=== PATIENT | female | born 1960 | race Caucasian/White ===

== ENCOUNTER 2021-01-25 10:37 | Outpatient (REF) | payer OTHER, SELFPAY ==
[2021-01-25 13:12] LABS: MANUAL DIFF FLAG NO
[2021-01-25 13:20] LABS: Basophils Absolute Auto 0.1 X10*3/uL (0.0-0.2); Basophils Percent Auto 0.9 % (0-2); Eosinophils Absolute Auto 0.2 X10*3/uL (0.0-0.4); Eosinophils Percent Auto 2.2 % (0-4); Hematocrit 42.1 % (37-47); Imm Gran Abs Auto 0.02 X10*3/uL (0.00-0.03); Imm Gran Pct Auto 0.3 % (0.0-0.4); Lymphocytes Absolute Auto 2.1 X10*3/uL (1.2-4.9); Lymphocytes Percent Auto 27.8 % (20-40); Mean Corpuscular HGB Conc 33.3 g/dl (31.0-35.0); Mean Corpuscular Hemoglobin 28.7 pg (27.0-33.0); Mean Corpuscular Volume 86.4 fL (80-98); Mean Platelet Volume 10.7 fL (9.4-12.3); Monocytes Absolute Auto 0.7 X10*3/uL (0.1-1.2); Monocytes Percent Auto 8.8 % (2-11); Neutrophils Absolute Auto 4.4 X10*3/uL (2.0-8.3); Platelet Count 304 X10*3/uL (160-400); Red Blood Count 4.87 X10*6/uL (4.20-5.50); Red Cell Distribution Width 12.9 % (11.0-16.0); White Blood Count 7.4 X10*3/uL (4.8-10.8)
[2021-01-25 13:40] LABS: Alanine Aminotransferase 24 U/L (0-31); Albumin Level 4.3 g/dL (3.5-5.0); Alkaline Phosphatase 92 U/L (39-117); Anion Gap 13 (12-20); Aspartate Amino Transferase 25 U/L (5-31); Bilirubin Total 0.4 mg/dL (0.0-1.0); Blood Urea Nitrogen 16 mg/dL (9-16); Calcium 10.1 mg/dL (8.4-10.2); Carbon Dioxide 26 mmol/L (22-29); Chloride 103 mmol/L (96-108); Cholesterol 270 mg/dL; Estimated Glomerular Filt Rate > 60; Glucose Fasting 97 mg/dL (60-99); HDL Cholesterol 60 mg/dL; LDL Cholesterol Calculated 190 mg/dl; Potassium 4.3 mmol/L (3.3-5.1); Sodium 138 mmol/L (135-145); Total Protein 7.8 g/dL (6.5-8.0); Triglycerides 102 mg/dL
[2021-01-25 14:03] LABS: Thyroid Stimulating Hormone 0.97 uIU/mL (0.32-4.0); Vitamin D 25-OH Total 71.8 ng/mL (>30)
== END 2021-01-25 10:38 | disposition home or self-care (01) ==
LOC: HO.MANLDS 10:37
PROVIDERS: PCP Internal Medicine; Visit Provider Physician Assistant
DX: Z00.00 Encounter for general adult medical examination without abnormal findings (principal)
CPT/HCPCS: 36415; 80053; 80061; 82306; 84439; 84443; 85025

== ENCOUNTER 2024-03-18 09:43 | Outpatient (REF) | payer OTHER, SELFPAY ==
[2024-03-18 13:22] LABS: MANUAL DIFF FLAG NO
[2024-03-18 13:31] LABS: Basophils Absolute Auto 0.1 X10*3/uL (0.0-0.2); Basophils Percent Auto 1.2 % (0-2); Eosinophils Absolute Auto 0.2 X10*3/uL (0.0-0.4); Hematocrit 42.8 % (37.0-47.0); Hemoglobin 14.2 g/dl (12.0-16.0); Imm Gran Abs Auto 0.02 X10*3/uL (0.00-0.03); Imm Gran Pct Auto 0.3 % (0.0-0.4); Lymphocytes Absolute Auto 2.3 X10*3/uL (1.2-4.9); Lymphocytes Percent Auto 30.7 % (20-40); Mean Corpuscular HGB Conc 33.2 g/dl (31.0-35.0); Mean Corpuscular Hemoglobin 29.6 pg (27.0-33.0); Mean Corpuscular Volume 89.2 fL (80.0-98.0); Monocytes Absolute Auto 0.5 X10*3/uL (0.1-1.2); Neutrophils Absolute Auto 4.4 x10*3/uL (2.0-8.3); Neutrophils Percent Auto 58.8 % (45-73); Platelet Count 352 X10*3/uL (160-400); White Blood Count 7.5 X10*3/uL (4.8-10.8)
[2024-03-18 13:42] LABS: Estimated Average Glucose 108 mg/dL; Hemoglobin A1c % 5.4 % (<6.0)
[2024-03-18 14:09] LABS: Alanine Aminotransferase 11 U/L (0-31); Albumin Level 4.3 g/dL (3.5-5.0); Alkaline Phosphatase 65 U/L (39-117); Anion Gap 13 (12-20); Aspartate Amino Transferase 16 U/L (5-31); Bilirubin Total 0.4 mg/dL (0.0-1.0); Blood Urea Nitrogen 19 mg/dL (9-16); Calcium 10.1 mg/dL (8.4-10.2); Carbon Dioxide 26 mmol/L (22-29); Chloride 107 mmol/L (96-108); Cholesterol 236 mg/dL (<200); Estimated Glomerular Filt Rate > 60; Glucose Random 86 mg/dL (60-115); HDL Cholesterol 61 mg/dL (>40); LDL Cholesterol Calculated 156 mg/dL (<100); Potassium 4.4 mmol/L (3.3-5.1); Sodium 142 mmol/L (135-145); Total Protein 7.9 g/dL (6.5-8.0); Triglycerides 97 mg/dL (<150)
[2024-03-18 14:26] LABS: Vitamin D 25-OH Total 58.8 ng/mL (>30)
== END 2024-03-18 09:44 | disposition home or self-care (01) ==
LOC: HO.MANLDS 09:43
PROVIDERS: Visit Provider Physician Assistant
DX: Z00.00 Encounter for general adult medical examination without abnormal findings (principal); Z20.2 Contact with and (suspected) exposure to infections with a predominantly sexual mode of transmission
CPT/HCPCS: 36415; 80053; 80061; 82306; 83036; 85025

== ENCOUNTER 2025-06-22 08:46 | Outpatient (REF) | payer OTHER, SELFPAY ==
--- OUTSIDE RECORDS SUMMARY | 2025-06-22 09:30 | XMS_ITS | Encounter Summary ---
Author Organization [facility] Address [address] [facility] [address] [place] [address] Phone Care Team Providers Care Wood Preserving Plant Laborer Name Role Phone Bony Davis DO Unavailable Bony Davis DO Primary Care Provider [phone] Encounter Details Date Type Department Care Team (Latest Contact Info) Description 06/09/2025 Transcribe Orders Virtual Department [address] [place] [address] Nettie Weber PA 6 [facility] [place] [address] [place] [address] Breast screening (Primary Dx) Social History Tobacco Use Types Packs/Day Years Used Date Smoking Tobacco: Never Smokeless Tobacco: Never Alcohol Use Standard Drinks/Week Comments Yes 0 (1 standard drink = 0.6 oz pur e alcohol) 1-2/week Education Answer Date Recorded Are you interested in more education? Not on eliseo e 01/11/2023 Are you concerned about learning? Not on file 01/11/2023 No 01/11/2023 No 01/11/2023 Digital Access Answer Date Recorded No 02/09/2023 No 02/09/2023 Reliable internet access at home? Not on file 02/09/2023 Device with a working camera? Not on file Comments No Sex and Gender Information Value Date Recorded Sex Assigned at Not on file Legal Sex Female 9:47 PM EDT Gender Identity Not on file Sexual Orientation Not on file documented as of this encounter Plan of Treatment Upcoming Encounters Date Type Department Care Team (Late st Contact Info) Description 06/09/2025 Procedure Pass [facility], Mammography- [address] [address] 02/14/2026 10:30 AM EDT Office Visit [facility] Plastic Surgery [address] [place] [address] Chad Varela MD [address] [place] [address] [place] [address] 02/15/2026 10:00 AM EDT Appointment [facility], [facility]- [address] [address] Nettie Weber PA 6 [facility] [place] [address] [place] [address] Scheduled Orders Name Type Priority Associated Diagnoses Orde r Schedule Mammogram Screening (Bilateral) Imaging Routine Breast screening Expected: 07/09/2025, Expires: 06/09/2026 documented as of this encounter Visit Diagnoses Diagnosis Breast screening- Primary Breast screening, unspecified documented in this encounter Care Teams Wood Preserving Plant Laborer Relationship Specialty Start Date End Date Bony Davis DO PCP - General Internal Medicine 07/11/17 Bony Davis DO Historical LMR Provider 07/01/17 documented as of this encounter Additional Source Comments The information contained in this document represents components of the legal health record. It is not the complete legal health record.[facility]
--- OUTSIDE RECORDS SUMMARY | 2025-06-22 09:30 | XMS_ITS | Clinical Summary ---
Author Organization [facility] Address [address] [employer] [facility] [address] [place] [address] Phone Care Team Providers Care Border Measurer Name Role Phone Joshua Davis DO Unavailable Joshua Davis DO Primary Care Provider [phone] Allergies No known active allergies Medications pravastatin (PRAVACHOL) 10 MG tablet pravastatin 10 mg tablet TAKE 1 TABLET BY MOUTH EVERY DAY Active metoprolol succinate (TOPROL-XL) 25 MG 24 hr tablet 5 Active tretinoin (RETIN-A) 0.1 % cream Apply topically every other day. 45 g 4 5 Active Encounters Date Type Department Care Team Description 06/09/2025 Transcribe Orders Virtual Department [address] [place] [address] Nettie Weber PA Breast screening (Primary Dx) from Last 3 Months Immunizations Immunization Administration Dates Next Due COVID-19 (Pre-07/08) Pfizer Vaccine, mRNA, PF ,01/01/2021 Family History Medical History Relation Comments CV disease Maternal Grandmother Breast cancer Neg Hx Relation Status Comments Father Maternal Grandmother Mother Alive Social History Tobacco Use Types Packs/Day Years Used Date Smoking Tobacco: Never Smokeless Tobacco: Never Tobacco Cessation:Counseling Given: Not Answered Alcohol Use Standard Drinks/Week Comments Yes 0 [...] on file Sexual Orientation Not on file Last Filed Vital Signs Vital Sign Reading Time Taken Comments Blood Pressure 131/65 02/15/2025 9:13 AM EDT Pulse 60 02/15/2025 9:13 AM EDT Temperature - - Respiratory Rate - - Oxygen Saturation - - Inhaled Oxygen Concentration - - Weight 67 kg (147 lb 12.8 oz) 02/15/2025 9:13 AM EDT Height 157.5 cm (5' 2 ) 09/23/2019 10:56 AM EST Body Mass Index 27.03 09/23/2019 10:56 AM EST Plan of Treatment Upcoming Encounters Date Type Department Care Team (Late st Contact Info) Description 06/09/2025 Procedure Pass [facility]- [address] [address] 02/14/2026 10:30 AM EDT Office Visit [facility] Plastic Surgery [address] [place] [address] Chad Varela MD [address] [place] [address] 02/15/2026 10:00 AM EDT Appointment [address] [address] Nettie Weber PA [address] [place] [address] [place] [address] Health Maintenance Due Date Last Done Comments Adult Td,Tdap Booster 1960 DEPRESSION SCREENING 1972 HEPATITIS C SCREENING 1978 HIV ONE-TIME SCREENING (18-6 5 YEARS) 1978 PAP SMEAR 1981 COLOGUARD 2005 COLONOSCOPY 2005 COLORECTAL CANCER SCREENING 2005 FIT TEST 2005 FOBT 2005 SIGMOIDOSCOPY 2005 VIRTUAL COLONOSCOPY 2005 PNEUMOCOCCAL VACCINES (50+ years) (1 of 1 - PCV) 2010 ZOSTER VACCINES (1 of 2) 2010 INFLUENZA VACCINE (#1) 2025 COVID-19 VACCINE (3 - 2024-2 6 season) 2025 01/22/2021, 01/01/2021 MAMMOGRAM 06/26/2026 06/26/2024, 10/31/2018, 08/23/2017 SCREENING FOR DIABETES 08/07/2027 08/07/2024 LIPID PANEL 03/15/2028 03/15/2023 RSV VACCINE (1 - 1-dose 75+ series) 12/31/2035 SMOKING STATUS SCREENING (On ce After 26 Yrs) Completed 02/15/2025 HEPATITIS A VACCINES Aged Out No long er eligible based on patient's age to complete this topic HIB VACCINES Aged Out No longer eligi ble based on patient's age to complete this topic MENINGOCOCCAL VACCINES (ACWY) Aged Out No longer eligible based on patient's age to complete this topic MENINGOCOCCAL VACCINES (B) Aged Out N o longer eligible based on patient's age to complete this topic Medical Devices Not on file Procedures Procedure Name Priority Date/Time Associated Diagnosis Comments GLUCOSE Routine 08/07/2024 9:26 AM EST FPC (current) use of anticoagulants Pre-operative laboratory examination Impaired glucose tolerance test BI MAMMOGRAM SCREENING WITH TOMOSYNTHESIS WITH CAD (BILATERAL) Routine 06/26/2024 10:51 AM EDT Breast screening LIPID PANEL Routine 03/15/2023 7:41 AM EDT Abnormal weight gain Mixed hyperlipidemia Other fatigue from Last 3 Months or Most Recently Relevant to Health Maintenance Results * (ABNORMAL) Glucose (08/07/2024 9:26 AM EST) GLUCOSE 101(H) 70 - 99 mg/dL [facility] Blood 08/07/2024 9:26 AM EST 08/07/2024 9:29 AM EST us Crow Worthington MD LAB BLOOD ORDERABLES Fin al Result [facility] [address] [place] [address] * BI MAMMOGRAM SCREENING WITH TOMOSYNTHESIS WITH CAD (BILATERAL) (06/26/2024 10:51 AM EDT) Anatomical Region Laterality Modality Breast Left, Breast Right, Breast Bilateral Bila teral Mammography 06/30/2024 9:09 AM EDT Impressions 06/30/2024 9:15 AM EDT No mammographic evidence of malignancy in either breast. Annual screening mammography is recommended. BI-RADS 2 BENIGN The patient will be notified of the results and recommendations. Narrative 06/30/2024 9:15 AM EDT BI MAMMOGRAM SCREENING WITH TOMOSYNTHESIS WITH CAD (BILATERAL) Additional patient information: Screening. COMPARISON: Comparison is made with relevant prior imaging. Breast composition: The breast tissue is heterogeneously dense which may obscure small masses. FINDINGS: No abnormal masses, suspicious calcifications, or other significant findings are identified mammographically in either breast. There are a few diffusely distributed bilateral microcalcifications with benign characteristics which are stable. Procedure Note Reilly [place] MD - 06/30/2024 BI MAMMOGRAM SCREENING WITH TOMOSYNTHESIS WITH CAD (BILATERAL) Additional patient information: Screening. COMPARISON: Comparison is made with relevant prior imaging. Breast composition: The breast tissue is heterogeneously dense which mayobscure small masses. FINDINGS: No abnormal masses, suspicious calcifications, or other significantfindings are identified mammographically in either breast. There are a fewdiffusely distributed bilateral microcalcifications with benigncharacteristics which are stable. IMPRESSION: No mammographic evidence of malignancy in either breast. Annual screening mammography is recommended. BI-RADS 2 BENIGN The patient will be notified of the results and recommendations. us Nettie PERES IMG MG EXAMS Final Resul t * (ABNORMAL) Lipid panel (03/15/2023 7:41 AM EDT) HDL 58 mg/dL [facility] Comment: Interpretation <40 mg/dL: Low HDL cholesterol (major risk factor for CHD) Greater than or equal to 60 mg/dL: High HDL cholesterol ( negative risk factor for CHD) HDL - cholesterol is affected by a number of factors, e.g. smoking, excerise, hormones, sex and age. CHOLESTEROL 220 0 - 240 mg/dL [facility] TRIGLYCERIDES 89 30 - 160 mg/dL [facility] LDL 144(H) 50 - 129 mg/dL [facility] Comment: LDL levels in terms of risk for coronary heart disease: <100 mg/dL: Optimal 100-129 mg/dL: Near or above optimal 130-159 mg/dL: Borderline high 160-189 mg/dL: High >190 mg/dL: Very High CARDIAC RISK RATIO 3.8 3.3 - 4.4 C [facility] Blood 03/15/2023 7:41 AM EDT 03/15/2023 7:45 AM EDT us Nettie PERES LAB BLOOD ORDERABLES Final Result [facility] [address] [place] [address] from Last 3 Months or Most Recently Relevant to Health Maintenance Insurance [facility] [employer] COMMUNITY CHOICE CHOICE CHOICE CHOICE CHOICE COMMUNITY CHOICE CHOICE [facility] COMM[facility] CHOICE Care Teams Border Measurer Relationship Specialty Start Date End Date Joshua Davis DO PCP - General Internal Medicine 07/11/17 Joshua Davis DO Historical LMR Provider 07/01/17 Additional Source Comments The information contained in this document represents components of the legal health record. It is not the complete legal health record.[facility]
--- OUTSIDE RECORDS SUMMARY | 2025-06-22 09:30 | XMS_ITS | Encounter Summary ---
Author Organization [facility] Address [address] [place] [address] [place] [address] Phone Care Team Providers Care Catering Barista Name Role Phone Bony Davis DO Unavailable Bony Davis DO Primary Care Provider [phone] Encounter Details Date Type Department Care Team (Late Contact Info) Description 03/18/2024 Procedure Pass [address] [address] Social History Tobacco Use Types Packs/Day Years [...] Encounters Date Type Department Care Team (Late Contact Info) Description 06/09/2025 Procedure Pass [address] [address] 02/14/2026 10:30 AM EDT Office Visit [facility] Plastic Surgery [address] [place] [address] Chad Varela MD 40 [facility], [address] [place] [address] 02/15/2026 10:00 AM EDT Appointment [facility], [facility]- [facility] [address] [place] [address] Nettie Weber PA 6 [facility] [place] [address] [place] [address] documented as of this encounter Visit Diagnoses Not on filedocumented in this encounter Care Teams Catering Barista Relationship Specialty Start Date End Date Bony Davis DO PCP - General Internal Medicine 07/11/17 Bony Davis DO Historical LMR Provider 07/01/17 documented as of this encounter Additional Source Comments The information contained in this document represents components of the legal health record. It is not the complete legal health record.[facility]
--- OUTSIDE RECORDS SUMMARY | 2025-06-22 09:30 | XMS_ITS | Encounter Summary ---
Author Organization [facility] Address [address] [place] [address] Phone Care Team Providers Care Final Expense Agent Name Role Phone Bony Davis DO Unavailable Bony Davis DO Primary Care Provider [phone] Encounter Details Date Type Department Care Team (Late st Contact Info) Description 11/20/2024 Procedure Pass [facility] [address] [place] [address] Social History Tobacco Use Types Packs/Day Years [...] st Contact Info) Description 06/09/2025 Procedure Pass [facility] [address] [place] [address] 02/14/2026 10:30 AM EDT Office Visit [facility] Plastic Surgery [address] [place] [address] Chad Varela MD 40 [facility], [address] [place] [address] 02/15/2026 10:00 AM EDT Appointment [facility], [facility]- [facility] [address] [place] [address] Nettie Weber PA 6 [facility] [place] [address] documented as of this encounter Visit Diagnoses Not on filedocumented in this encounter Care Teams Final Expense Agent Relationship Specialty Start Date End Date Bony Davis DO PCP - General Internal Medicine 07/11/17 Bony Davis DO Historical LMR Provider 07/01/17 documented as of this encounter Additional Source Comments The information contained in this document represents components of the legal health record. It is not the complete legal health record.[facility]
--- OUTSIDE RECORDS SUMMARY | 2025-06-22 09:30 | XMS_ITS | Encounter Summary ---
Author Organization [facility] Address [address] [facility] [address] [place] [address] Phone Care Team Providers Care Etcher Hand Name Role Phone Bony Davis DO Unavailable Bony Davis DO Primary Care Provider [phone] Encounter Details Date Type Department Care Team (Latest Contact Info) Description 03/18/2024 Transcribe Orders Virtual Department [address] [place] [address] Nettie Weber PA 6 [place] [address] Breast screening (Primary Dx) Social History Tobacco [...] st Contact Info) Description 06/09/2025 Procedure Pass [facility] [address] [place] [address] 02/14/2026 10:30 AM EDT Office Visit [facility] Plastic Surgery [address] [place] [address] Chad Varela MD [address] [place] [address], [address] [place] [address] 02/15/2026 10:00 AM EDT Appointment [address] [address] Nettie Weber PA 6 [place] [address] documented as of this encounter Results * BI MAMMOGRAM SCREENING WITH TOMOSYNTHESIS WITH [...] PERES IMG MG EXAMS Final Resul t documented in this encounter Visit Diagnoses Diagnosis Breast screening- Primary Breast screening, unspecified Breast screening Breast screening, unspecified documented in this encounter Care Teams Etcher Hand Relationship Specialty Start Date End Date Bony Davis DO [email or web address] PCP - General Internal Medicine 07/11/17 Bony Davis DO [email or web address] Historical LMR Provider 07/01/17 documented as of this encounter Additional Source Comments The information contained in this document represents components of the legal health record. It is not the complete legal health record.[facility]
--- OUTSIDE RECORDS SUMMARY | 2025-06-22 09:31 | XMS_ITS | Encounter Summary ---
Author Organization [facility] Address [address] [place] [address] [place] [address] Phone Care Team Providers Care Greenkeeper Name Role Phone Bony Davis DO Unavailable Bony Davis DO Primary Care Provider [phone] Encounter Details Date Type Department Care Team (Late Contact Info) Description 11/30/2024 Procedure Pass [facility] [address] [place] [address] Social History Tobacco Use Types Packs/Day Years [...] (Late Contact Info) Description 06/09/2025 Procedure Pass [facility] [address] [place] [address] 02/14/2026 10:30 AM EDT Office Visit [facility] Plastic Surgery [address] [place] [address] Chad Varela MD 40 [facility], [address] [address] 02/15/2026 10:00 AM EDT Appointment [facility], [facility]- [facility] [address] [place] [address] Nettie Weber PA 6 [facility] [place] [address] documented as of this encounter Visit Diagnoses Not on filedocumented in this encounter Care Teams Greenkeeper Relationship Specialty Start Date End Date Bony Davis DO PCP - General Internal Medicine 07/11/17 Bony Davis DO Historical LMR Provider 07/01/17 documented as of this encounter Additional Source Comments The information contained in this document represents components of the legal health record. It is not the complete legal health record.[facility]
--- OUTSIDE RECORDS SUMMARY | 2025-06-22 09:31 | XMS_ITS | Encounter Summary ---
Author Organization [facility] Address [address] [place] [address] Phone Care Team Providers Care Business Unit Manager Name Role Phone Bony Davis DO Unavailable Danna Parsons MANAGER PUBLIC Unavailable Juanis Strong MANAGER PUBLIC Unavailable Bib Sparrow MD Unavailable Kathleen Masters MANAGER PUBLIC Unavailable Vicky St MD Unavailable Maranda Olivera MD Unavailable [phone] Nasima Damon NP Unavailable Bony Davis DO Primary Care Provider [phone] Encounter Details Date Type Department Care Team (Late st Contact Info) Description 07/11/2017 Ancillary Orders Virtual Department [address] [place] [address] Bony Davis DO [address] [facility] [address] Breast screening Social History Tobacco Use Types Packs/Day Years Used Date Smoking Tobacco: Never Assessed Comments Unknown Sex and Gender Information Value Date Recorded Sex Assigned at Not on file Legal Sex Female 9:47 PM EDT Gender Identity Not on file Sexual Orientation Not on file documented as of this encounter Plan of Treatment Upcoming Encounters Date Type Department Care Team (Late st Contact Info) Description 06/09/2025 Procedure Pass [facility], [facility] [address] [place] [address] 02/14/2026 10:30 AM EDT Office Visit [facility] Plastic Surgery [address] [place] [address] Chad Varela MD 40 [facility], [address] [place] [address] 02/15/2026 10:00 AM EDT Appointment [address] [address] Nettie Weber PA [address] [place] [address] documented as of this encounter Results * BI MAMMOGRAM SCREENING WITH TOMOSYNTHESIS WITH CAD (BILATERAL) (08/23/2017 9:05 AM EST) Anatomical Region Laterality Modality Breast Left, Breast Right, Breast Bilateral Bila teral Mammography 08/23/2017 12:5 1 PM EST Impressions 08/23/2017 12:58 PM EST No mammographic signs of malignancy. Annual screening is recommended. BI-RADS CATEGORY: 2 - Benign finding. DENSITY: The breast tissue is heterogeneously dense, an appearance which lowers the sensitivity of mammography. POS - [facility] Narrative 08/23/2017 12:58 PM EST Bilateral mammography is performed in conjunction with computed aided detection. 3-D tomography along with 2-D C view imaging was also performed. Comparison made to previous dated as far back as 10/12/2010 and is recent as 07/09/2016. Breasts are composed of heterogeneously dense fibroglandular tissue somewhat limiting the sensitivity of mammography. No suspicious masses, areas of architectural distortion or suspicious microcalcifications. Stable scattered bilateral microcalcifications. Procedure Note Reilly Maza MD - 08/23/2017 Bilateral mammography is performed in conjunction with computed aideddetection. 3-D tomography along with 2-D C view imaging was alsoperformed. Comparison made to previous dated as far back as 10/12/2010 andis recent as 07/09/2016. Breasts are composed of heterogeneously dense fibroglandular tissuesomewhat limiting the sensitivity of mammography. No suspicious masses, areas of architectural distortion or suspiciousmicrocalcifications. Stable scattered bilateral microcalcifications. IMPRESSION: No mammographic signs of malignancy. Annual screening is recommended. BI-RADS CATEGORY: 2 - Benign finding. DENSITY: The breast tissue is heterogeneously dense, an appearance whichlowers the sensitivity of mammography. POS - CDHMAMA us Bony Davis DO IMG MG EXAMS Final Result documented in this encounter Visit Diagnoses Diagnosis Breast screening Breast screening, unspecified Breast screening Breast screening, unspecified documented in this encounter Care Teams Business Unit Manager Relationship Specialty Start Date End Date Bony Davis DO PCP - General Internal Medicine 07/11/17 Bony Davis DO Historical LMR Provider 07/01/17 Danna Parsons NP [address] [place] [address] Historical LMR Provider 07/01/17 2 Juanis Strong NP [address] [place] [address] Historical LMR Provider 07/01/17 2 Bib Sparrow MD [address] [place] [address] [address] [place] [address] Historical LMR Provider 07/01/17 09/23/21 Kathleen Masters NP [address] [place] [address] [email or web address] Historical LMR Provider 07/01/[address] MD 15 [facility] [place] [address] Historical LMR Provider 07/01/17 Maranda Olivera MD 22 [facility], [address] [place] [address] Historical LMR Provider 07/01/17 09/23/21 Nasima Damon NP [address] [place] [address] Historical LMR Provider 07/01/17 2 documented as of this encounter Additional Source Comments The information contained in this document represents components of the legal health record. It is not the complete legal health record.[facility]
--- OUTSIDE RECORDS SUMMARY | 2025-06-22 09:31 | XMS_ITS | Encounter Summary ---
Author Organization [facility] Address [address] [place] [address] Phone Care Team Providers Care Medical Dosimetrist Name Role Phone Bony Davis DO Unavailable Danna Parsons FRUIT BAR MAKER Unavailable Juanis Strong FRUIT BAR MAKER Unavailable iBb Sparrow MD Unavailable Kathleen Masters FRUIT BAR MAKER Unavailable Vicky St MD Unavailable [phone] Maranda Olivera MD Unavailable [phone] Nasima Damon NP Unavailable Bony Davis DO Primary Care Provider [phone] Encounter Details Date Type Department Care Team (Late st Contact Info) Description 10/27/2018 Ancillary Orders Virtual Department [address] [place] [address] Bony Davis DO [address] [place] [address] Breast screening Social History Tobacco Use Types [...] st Contact Info) Description 06/09/2025 Procedure Pass [facility], [facility] [address] [place] [address] 02/14/2026 10:30 AM EDT Office Visit [facility] Plastic Surgery [address] [place] [address] Chad Varela MD [address] [place] [address], [address] [place] [address] 02/15/2026 10:00 AM EDT Appointment [address] [address] Nettie Weber PA 6 [facility] [address] [place] [address] documented as of this encounter Results * BI MAMMOGRAM SCREENING WITH TOMOSYNTHESIS WITH CAD (BILATERAL) (10/31/2018 11:36 AM EST) Anatomical Region Laterality Modality Breast Left, Breast Right, Breast Bilateral Bila teral Mammography 10/31/2018 1:41 PM EST Impressions 10/31/2018 1:43 PM EST Stable appearance relative to prior imaging. No findings suggestive of malignancy are seen. BI-RADS CATEGORY: 2 - Benign finding. DENSITY: The breast tissue is heterogeneously dense, an appearance which lowers the sensitivity of mammography. POS - [id number] Narrative 10/31/2018 1:43 PM EST Full-field digital mammography is obtained with computer-aided detection. Comparison with prior imaging from 08/23/2017 is made with older imaging dating back as far as 01/22/2012 also reviewed. There is heterogeneous fibroglandular density evident in the breasts. In addition to 2-D C view imaging, tomosynthesis images are obtained in two projections of each breast. There are minor scattered bilateral breast calcifications again evident.. No dominant soft tissue mass of concern, suspicious cluster of calcifications, significant interval skin changes, or architectural distortion is identified. Procedure Note Pacilio, Nilson V, MD - 10/31/2018 Full-field digital mammography is obtained with computer-aided detection.Comparison with prior imaging from 08/23/2017 is made with older imagingdating back as far as 01/22/2012 also reviewed. There is heterogeneous fibroglandular density evident in the breasts. Inaddition to 2-D C view imaging, tomosynthesis images are obtained in twoprojections of each breast. There are minor scattered bilateral breast calcifications again evident..No dominant soft tissue mass of concern, suspicious cluster ofcalcifications, significant interval skin changes, or architecturaldistortion is identified. IMPRESSION: Stable appearance relative to prior imaging. No findings suggestive ofmalignancy are seen. BI-RADS CATEGORY: 2 - Benign finding. DENSITY: The breast tissue is heterogeneously dense, an appearance whichlowers the sensitivity of mammography. POS - [id number] Bony Davis DO IMG MG EXAMS Final Result documented in this encounter Visit Diagnoses Diagnosis Breast screening Breast screening, unspecified Breast screening Breast screening, unspecified documented in this encounter Care Teams Medical Dosimetrist Relationship Specialty Start Date End Date Bony Davis DO PCP - General Internal Medicine 07/11/17 Bony Davis DO Historical LMR Provider 07/01/17 Danna Parsons NP [address] [place] [address] Historical LMR Provider 07/01/17 2 Juanis Strong NP [address] [place] [address] Historical LMR Provider 07/01/17 2 Bib Sparrow MD [address] [address] Historical LMR Provider 07/01/17 09/23/21 Kathleen Masters NP [address] [place] [address] [email or web address] Historical LMR Provider 07/01/[address] MD 15 [facility], [address] [place] [address] Historical LMR Provider 07/01/17 Maranda Olivera MD [address] [address] Historical LMR Provider 07/01/17 09/23/21 Nasima Damon NP [address] [place] [address] Historical LMR Provider 07/01/17 2 documented as of this encounter Additional Source Comments The information contained in this document represents components of the legal health record. It is not the complete legal health record.[facility]
--- OUTSIDE RECORDS SUMMARY | 2025-06-22 09:31 | XMS_ITS | Encounter Summary ---
Author Organization [facility] Address [address] [place] [address] Phone Care Team Providers Care Buttonholer Name Role Phone Bony Davis Unavailable ZeinaBony cr Primary Care Provider [phone] Reason for Referral * Outpatient Procedure - Closed Specialty Diagnoses / Procedures Referred By Robin fajardo Referred To Contact Radiology Diagnoses Palpitations Procedures Adult Echo TTE CA ECHO HEART XTHORACIC,COMPLETE W DOPPLER CA ECHO XTHORACIC,CORNELL ANOM,COMPLETE CA ECHO HEART XTHORACIC,COMPLETE, W/O DOPPLER CA ECHO HEART XTHORACIC,LIMITED Nettie Weber PA 6 [facility] [place] [address] Phone: tel: fax: Referral ID Status Reason Start Date Expiration Date Visits Re quested Visits Authorized [id number] Closed 11/30/2024 12/29/2024 1 1 Encounter Details Date Type Department Care Team (Latest Contact Info) Description 11/30/2024 Transcribe Orders Virtual Department [address] [place] [address] Nettie Weber PA 6 [facility] [place] [address] Palpitations (Primary Dx) Social History Tobacco Use Types [...] st Contact Info) Description 06/09/2025 Procedure Pass [address] [address] 02/14/2026 10:30 AM EDT Office Visit [facility] Plastic Surgery [address] [place] [address] Chad Varela MD [address] [place] [address] [email or web address] 02/15/2026 10:00 AM EDT Appointment [address] [address] Nettie Weber PA [address] [place] [address] [place] [address] documented as of this encounter Results * TTE COMPREHENSIVE (12/15/2024 12:05 PM EDT) Body Surface Area 1.71 m2 Height 158 cm Weight 69 kg Systolic BP 125 mmHg Diastolic BP 58 mmHg Interventricular Septum Thickness 8 6 - 11 mm Left Ventricle Internal Diameter End Diastole 41 37 - 52 mm Left Ventricle Internal Diameter End Systole 28 <35 mm Left Ventricular Outflow Tract Diameter 21.0 mm LVOT VTI REST 159.0 mm Left Ventricular Outflow Tract Velocity 0.8 m/s Left Ventricular Outflow Tract Gradient at Rest 3 mmHg Left Ventricular Posterior Wall Thickness 8 6 - 11 mm Left Ventricle Ea Lateral Wave Speed 11.4 cm/s Left Ventricle Ea Septal Wave Speed 7.9 cm/s Ejection Fraction 58 50 - 75 Percent Aortic Valve Mean Gradient 4 mmHg Aortic Valve Time Velocity Integral 270.0 mm Aortic Valve Peak Velocity 1.3 m/s Aortic Valve Peak Gradient 7 mmHg Aortic Sinus Diameter 31 <40 mm Ascending Aorta Diameter 28 <36 mm Inferior Vena Cava Diameter 20 <21 mm Mitral Valve Area Pressure Half Time Eq 5,410.0 mm/s2 Mitral Valve Deceleration Time 144 ms MV stenosis pressure 1/2 time 42 ms Left Ventricle A Wave Speed 89.7 cm/s Left Ventricle E Wave Speed 78.1 cm/s Mitral Valve Mean Gradient 2 mmHg Mitral Valve Peak Gradient 3 mmHg Mitral Valve Area Continuity Equation 2.80 cm2 Pulmonary Valve Peak Velocity 0.9 m/s Pulmonary Valve Peak Gradient 3 mmHg Right Ventricle Basal Diameter 28 25 - 41 mm Tricuspid Valve Peak Velocity 2.2 m/s Raw LV EF% 53 % MV E/E' Tissue Velocity Lateral 6.85 Relative Wall Thickness 0.39 0.22 - 0.42 Left Ventricular Mass 97.3 g Left Ventricle indexed to BSA 56.9 g/m2 MV E/A ratio 0.9 MV E/e' septal 9.89 Left Ventricle E/e' Average 8.4 Aortic Valve Prosthetic Peak Gradient 7 mmHg Aortic Valve Prosthetic Mean Gradient 4 mmHg Aortic Valve Sinus Index by BSA 18 mm/m2 Aorta Sinus Index by Height 1.96 cm/m Aorta Sinus CSA index by Height 4.77 cm2/m Ascending Aorta Index 16 mm/m2 Asc Aorta CSA Index by Height 3.90 cm2/m Mitral Valve Prosthetic Peak Gradient 3 mmHg Mitral Valve Prosthetic Mean Gradient 2 mmHg MV valve area p 1/2 method 5.2 cm2 Mitral Valve Area DT Method 12.2 cm2 Right Ventricle to Right Atrium Pressure Gradient 19 mmHg Right Ventricle Peak Systolic Pressure (Assuming RAP 10) 29 mmHg MGB CV ECHO TV RVSP (ASSUMING RAP OF 5) 24 mmHg RVSP (Exclusive of RAP) 19 mmHg Pulmonic Valve Prosthetic Peak Gradient 3 mmHg Ascending Aorta Index 16 mm Aortic Sinus Index 18 mm Ascending Aorta Diameter 16 mm Aortic Valve Sinus Index 1 18 19 - 27 mm AO ASC DIAM BSA INDEX 16.37 Echo E/Ea 9.89 Left Atrial Volume Index 28 16 - 34 mL/m2 Right Ventricle TAPSE 20 >=17 mm Right Ventricle Pulse Doppler S Wave 13.6 >=9.5 cm/s Left Atrial Volume 48 mL Left Atrial Volume Index by Height 30 mL/m Right Atrium Area 11 cm2 Right Atrium Area index 6 cm2/m2 Right Ventricle Peak Systolic Pressure 22 mmHg Right Atrium Pressure Estimated 3 mmHg Anatomical Region Laterality Modality Heart Ultrasound Addenda Addendum by Jann Encarnacion MD on 12/16/2024 1:33 PM EDT Images from the original result were not included. Rhythm is sinus - Normal LV size and systolic function - EF is estimated at 58% - Diastolic function is normal - Normal RV systolic function - Mild to moderate mitral valve regurgitation, multiple jets - Trace to mild tricuspid valve regurgitation - RVSP calculated at 22 mmHg - No pericardial effusion present - IVC is normal Left Ventricle The left ventricle is normal in size. There is normal wall thickness. There is normal left ventricular systolic function. The LV ejection fraction is 58% (calculated via biplane measurement). LV diastolic function appears within normal limits for age. The E/A ratio is 0.9. The e' septal wave velocity is 7.9 cm/s. The e' lateral wave velocity is 11.4 cm/s. The average E/e' ratio is 8.4. Right Ventricle The right ventricle is normal in size. There is normal right ventricular systolic function. TAPSE is 20 mm. RV S' wave is 13.6 cm/s. Left Atrium The left atrium is normal in size. The left atrial volume is 48 mL. The left atrial volume index by BSA is 28 mL/m2. There are normal flow patterns in the pulmonary vein. Right Atrium The right atrium is normal in size. The IVC is normal in size with normal inspiratory collapse. Mitral Valve There is mild mitral valve prolapse. There is no mitral stenosis. There is mild to moderate mitral regurgitation with multiple jets. Tricuspid Valve The tricuspid valve appears normal. There is no tricuspid stenosis. There is trace to mild tricuspid regurgitation. The RV systolic pressure was calculated at 22 mmHg (using TR peak velocity of 2.2 m/s and assuming an RA pressure of 3 mmHg). Aortic Valve The aortic valve is tricuspid. There is no aortic stenosis. There is no aortic regurgitation. The visualized portions of the thoracic aorta appear normal in size. The aortic sinus diameter is 31 mm. The ascending aortic diameter is 28 mm. Pulmonic Valve The pulmonic valve appears normal. There is no pulmonic stenosis. There is trace pulmonic regurgitation. Pericardium There is no pericardial effusion. General Findings The image quality was adequate. Technique(s) used in the evaluation: Color flow Doppler and Spectral Doppler. Consent was obtained from: patient The predominant rhythm during the study was sinus. Patient tolerated the procedure well. No complications observed during the procedure. Comparison Findings There are no prior studies for comparison. IAS/IVS The interatrial septum appears normal. There is no evidence of a ventricular septal defect. us Nettie PERES CV ECHO ORDERABLES Edited R esult - Final documented in this encounter Visit Diagnoses Diagnosis Palpitations- Primary Palpitations documented in this encounter Care Teams Buttonholer Relationship Specialty Start Date End Date Bony Davis DO PCP - General Internal Medicine 07/11/17 Bony Davis DO Historical LMR Provider 07/01/17 documented as of this encounter Additional Source Comments The information contained in this document represents components of the legal health record. It is not the complete legal health record.[facility]
[2025-06-22 13:43] LABS: MANUAL DIFF FLAG NO
[2025-06-22 13:52] LABS: Hematocrit 39.1 % (37.0-47.0); Hemoglobin 13.1 g/dl (12.0-16.0); Imm Gran Abs Auto 0.06 X10*3/uL (0.00-0.03); Imm Gran Pct Auto 0.9 % (0.0-0.4); Lymphocytes Absolute Auto 2.1 X10*3/uL (1.2-4.9); Mean Corpuscular HGB Conc 33.5 g/dl (31.0-35.0); Mean Corpuscular Hemoglobin 28.7 pg (27.0-33.0); Mean Corpuscular Volume 85.6 fL (80.0-98.0); NRBC Abs Auto 0.000 X10*3/uL (0.0-0.012); NRBC Pct Auto 0.0 /100WBC (0.0-0.2); Platelet Count 345 X10*3/uL (160-400); Red Blood Count 4.57 X10*6/uL (4.20-5.50); White Blood Count 6.8 X10*3/uL (4.8-10.8)
[2025-06-22 13:57] LABS: Hemoglobin A1C 123.7812 umol/L; Total Hemoglobin (HGBA1C) 3467.0703 umol/L
[2025-06-22 14:20] LABS: Alanine Aminotransferase 10 U/L (0-31); Albumin Level 4.1 g/dL (3.5-5.0); Alkaline Phosphatase 70 U/L (39-117); Anion Gap 12 (12-20); Aspartate Amino Transferase 19 U/L (5-31); Blood Urea Nitrogen 26 mg/dL (9-16); Calcium 9.5 mg/dL (8.4-10.2); Carbon Dioxide 25 mmol/L (22-29); Chloride 107 mmol/L (96-108); Cholesterol 239 mg/dL (<200); Estimated Glomerular Filt Rate > 60; HDL Cholesterol 51 mg/dL (>40); Potassium 4.4 mmol/L (3.3-5.1); Sodium 140 mmol/L (135-145); Total Protein 7.5 g/dL (6.5-8.0); Triglycerides 115 mg/dL (<150)
== END 2025-06-22 08:47 | disposition home or self-care (01) ==
LOC: HO.MANLDS 08:46
PROVIDERS: Visit Provider Physician Assistant
DX: Z00.00 Encounter for general adult medical examination without abnormal findings (principal); Z13.1 Encounter for screening for diabetes mellitus; E78.2 Mixed hyperlipidemia; Z83.49 Family history of other endocrine, nutritional and metabolic diseases
CPT/HCPCS: 36415; 80053; 80061; 83036; 84443; 85025